=== PATIENT | male | born 1945 | race Caucasian/White ===

== ENCOUNTER → 2021-03-24 | Outpatient (CLI) | payer MEDICARE, OTHER ==
[~2021-03-24] MED LIST: CLOPIDOGREL75 MG PO; ECOTRIN81 MG PO; GABAPENTIN300 MG PO; KLONOPIN TAB 00.5 MG PO; LIPITOR TAB 2020 MG PO; PLETAL 100 MG100 MG PO; REVATIO 20 MG T20 MG PO
== END ==
LOC: CT 03-12 13:30 → US 03-12 13:30 → CT 03-12 15:00 → US 03-12 15:00
DX: I73.9 Peripheral vascular disease, unspecified (principal); I65.23 Occlusion and stenosis of bilateral carotid arteries; F17.200 Nicotine dependence, unspecified, uncomplicated
CPT/HCPCS: 36415; 75635; 82565; 84520; 93922; Q9967